=== PATIENT | male | born 1980 | race Two or more races ===

== ENCOUNTER 2021-10-19 15:57 | Inpatient (IN) | payer MEDICAID, OTHER ==
[~2021-10-19] VITALS: Ht 167.6 cm; Wt 72.2 kg
[2021-10-19] MEDS ORDERED: DexAMETHasone SOD PHOS 10MG/1ML VIAL INJ IM ONE (23:00)
[2021-10-20 08:56] LABS: Basophils # (auto) 0 10 ^3/uL (0-0.2); Basophils % (auto) 0.6 % (0.0-2.0); Eosinophils # (auto) 0 10 ^3/uL (0-0.8); Hematocrit 45.9 % (41.0-53.0); Hemoglobin 16.3 g/dL (13.5-17.5); Lymphocytes # (auto) 0.7 10 ^3/uL (0.4-5.4); Lymphocytes % (auto) 9.6 % (10.0-50.0); Mean Corpuscular Hemoglobin 31.2 pg (28.0-32.0); Mean Corpuscular Hgb Conc. 35.5 g/dL (32.0-36.0); Mean Corpuscular Volume 87.8 fL (80.0-100.0); Monocytes # (auto) 0.2 10 ^3/uL (0-1.3); Monocytes % (auto) 2.3 % (0.0-12.0); Neutrophils # (auto) 6.2 10 ^3/uL (1.6-8.6); Neutrophils % (auto) 87.5 % (37.0-80.0); Nucleated Red Blood Cells % 0.1 %; Red Blood Cells 5.22 10^6/uL (4.5-5.90); Red Cell Distribution Width 13.2 % (11.8-14.3); White Blood Cell 7.1 10^3/uL (4.4-10.8)
[2021-10-20 09:12] LABS: Albumin 3.8 g/dL (3.4-5.0); BUN/Creatinine Ratio 12.5; Potassium 3.8 mmol/L (3.5-5.1)
[2021-10-20 09:15] LABS: Bilirubin, Total 0.8 mg/dL (0.2-1.0); Total Protein 8.6 g/dL (6.4-8.2)
[2021-10-20] MEDS ORDERED: predniSONE 20 MG TAB PO ONE (10:30)
[2021-10-20] MEDS ORDERED: ACETAMINOPHEN 325 MG TAB PO PRN (10:30)
[2021-10-20] MEDS ORDERED: DOCUSATE SOD 100 MG CAP PO PRN (10:30)
[2021-10-20] MEDS ORDERED: ONDANSETRON HCL 4 MG/2 ML VIAL IV PRN (10:30)
[2021-10-20] MEDS: SODIUM CHLOR 0.9% PF (SALINE LOCK) 10ML VIAL/SYR IV SCH ×2 (14:12→22:12)
[2021-10-20 20:00] VITALS: BP 113/84
[2021-10-20 22:00] VITALS: BP 113/84
[2021-10-21 05:00] VITALS: BP 105/63
[2021-10-21] MEDS: SODIUM CHLOR 0.9% PF (SALINE LOCK) 10ML VIAL/SYR IV SCH ×2 (05:42→13:11)
[2021-10-21 09:00] VITALS: BP 117/68
[2021-10-21] MEDS ORDERED: predniSONE 20 MG TAB PO SCH (10:00)
[2021-10-21 13:00] VITALS: BP 121/70
[2021-10-21] MEDS ORDERED: METH4PAK PO (14:00)
== END 2021-10-21 16:12 | disposition home or self-care (01) | DRG 811 ==
LOC: ER 15:57 → OVERFLOW 10-20 10:26 → WEST WING 10-20 17:47
PROVIDERS: ADMIT Internal Medicine; ATTEND Internal Medicine
DX: T78.3XXA Angioneurotic edema, initial encounter (principal); D89.839 Cytokine release syndrome, grade unspecified; Z20.822 Contact with and (suspected) exposure to COVID-19
CPT/HCPCS: 36415; 70486; 71045; 80053; 84484; 85025; 85652; 86141; 86160; 96372; G0378; J1100

== ENCOUNTER 2022-01-12 00:20 | Emergency (ER) | payer MEDICAID ==
[~2022-01-12] VITALS: Ht 162.6 cm; Wt 84.1 kg
[~2022-01-12 00:20] MED LIST: METH4PAK PO
[2022-01-12 05:45] VITALS: BP 120/83
[2022-01-12] MEDS ORDERED: TRIA0.02 TOP (06:44)
[2022-01-12] MEDS ORDERED: ACYC-166 PO (06:44)
[2022-01-12] MEDS ORDERED: IBUP800T27 PO (06:44)
[2022-01-12] MEDS ORDERED: KETOROLAC TROMETH 60MG/2ML VIAL IM ONE (06:45)
== END 2022-01-12 07:35 | disposition home or self-care (01) ==
LOC: ER 00:20
DX: B02.9 Zoster without complications (principal)
CPT/HCPCS: 96372; 99283; J1885

== ENCOUNTER 2022-04-23 10:05 | Emergency (ER) | payer MEDICAID ==
[~2022-04-23] VITALS: Ht 167.6 cm; Wt 82.2 kg
[~2022-04-23 10:05] MED LIST changes: +ACYC-166 PO; +IBUP800T27 PO; +TRIA0.02 TOP
[2022-04-23 10:45] VITALS: BP 138/89
[2022-04-23] MEDS ORDERED: cefTRIAXone SOD 1,000 MG VL IM ONE (11:00)
[2022-04-23] MEDS ORDERED: IBUPROFEN 800 MG TAB PO ONE (11:00)
[2022-04-23] MEDS ORDERED: CLIN300C8 PO (11:15)
[2022-04-23] MEDS ORDERED: IBUP800T27 PO (11:15)
== END 2022-04-23 11:20 | disposition home or self-care (01) ==
LOC: ER 10:05
DX: K04.7 Periapical abscess without sinus (principal)
CPT/HCPCS: 96372; 99283; J0696